=== PATIENT | female | born 1995 | race Caucasian/White ===

== ENCOUNTER 2018-01-25 15:19 | Emergency (ER) | payer BC, OTHER ==
[~2018-01-25] VITALS: Ht 162.6 cm; Wt 96.0 kg
[2018-01-25 15:24] VITALS: TEMP 36.9; Ht 162.6 cm; Wt 96.0 kg
[2018-01-25 16:14] LABS: BASO % 0.2 %; BASO ABS # 0.03 K/uL (0-0.2); EOS % 1.5 %; EOS ABS # 0.19 K/uL (0-0.5); HEMATOCRIT 41.8 % (37-47); HEMOGLOBIN 14.5 g/dL (12.0-16.0); IG# 0.04 K/uL (0.00-0.02); LYMPH % 21.1 %; LYMPH ABS # 2.63 K/uL (1.2-3.4); MEAN CELL VOLUME 84.1 fL (80-100); MEAN CORPUSCULAR HEMOGLOBIN 29.2 pg (25-34); MEAN CORPUSCULAR HGB CONC 34.7 g/dl (32-36); MONO % 5.5 %; MONO ABS # 0.69 K/uL (0.11-0.59); NEUT % 71.4 %; NEUT ABS # 8.91 K/uL (1.4-6.5); PLATELET COUNT 334 K/uL (130-400); RED CELL DISTRIBUTION WIDTH SD 39.3 fL (36.4-46.3); WHITE BLOOD COUNT 12.49 K/uL (4.8-10.8)
--- NOTE | 2018-01-25 16:20 | DIAGNOSTIC IMAGING REPORT ---
CT HEAD WITHOUT CONTRAST (CT) CLINICAL HISTORY: Left-sided numbness and blurry vision COMPARISON STUDY: No previous studies for comparison. TECHNIQUE: Axial CT of the brain is performed from the vertex to the skull base. IV contrast was not administered for this examination. A dose lowering technique was utilized adhering to the principles of ALARA. CT DOSE: 638.56 mGycm FINDINGS: No intra or extra-axial mass lesions are visualized. There is no CT evidence of acute cortical infarction. There is no evidence of midline shift. There is no acute hemorrhage. No calvarial fractures are visualized. There is no evidence of pathologic ventricular dilatation. There is no evidence of acute sinusitis IMPRESSION: Normal noncontrast head CT. Electronically signed by: Karl Marie M.D. 01/25/2018 4:19 PM Dictated Date/Time: 01/25/2018 4:18 PM
[2018-01-25] MEDS ORDERED: METOCLOPRAMIDE HCL INJ 5 MG/ML 2 ML VIAL IV. STA (16:28)
[2018-01-25] MEDS ORDERED: DiphenhydrAMINE HCL 50 MG/ML VIAL IV STA (16:28)
[2018-01-25] MEDS ORDERED: SODIUM CHLORIDE 0.9% 1000ML 1,000 ML IV ONE (16:30)
[2018-01-25 16:34] LABS: CALCIUM 9.2 mg/dl (8.5-10.1); CREATININE 0.97 mg/dl (0.60-1.20); POTASSIUM 3.7 mmol/L (3.5-5.1)
--- NOTE | 2018-01-25 16:38 | EMERGENCY ROOM VISIT NOTE ---
History First contact with patient: 15:40 Chief Complaint: NEURO SYMPTOMS Stated Complaint: LEFT SIDED NUMBNESS, BLURRED VISION Nursing Triage Summary: Patient to ED via triage with family referred by urgent care, reports headache since 1400 with bilateral blurry vision, tingling to left arm. hx of migraines History of Present Illness The patient is a 22 year old female who presents to the Emergency Room with complaints of neuro symptoms that started at approximately 1:30 this afternoon. The patient was driving when she noticed blurry vision in both of her eyes. She also noticed numbness on the left side of her face and body. The blurry vision has resolved. The numbness persists. She denies any weakness. No headache. She denies any similar symptoms in the past. The patient does have a history of confusion migraines. This is not similar to her previous migraines. She denies any fever or chills. No recent illnesses. She has not taken anything for symptoms. Review of Systems 10 system review performed and negative unless noted in HPI or below Past Medical/Surgical History History of disseminated Lyme disease History of confusion migraines Social History Smoking Status: Never Smoker Marital Status: single Occupation Status: employed Current/Historical Medications No Active Prescriptions or Reported Meds Physical Exam Vital Signs Date Time Temp Pulse Resp B/P (MAP) Pulse Ox O2 Delivery O2 Flow Rate FiO2 01/25/18 18:29 58 16 129/74 98 01/25/18 17:35 65 16 133/72 97 Room Air 01/25/18 16:55 68 16 152/76 99 Room Air 01/25/18 15:24 36.9 84 20 142/92 92 Room Air Physical Exam VITALS: Vitals are noted on the nurse's note and reviewed by myself. Vital signs stable. GENERAL: 22-year-old female, in no acute distress, nondiaphoretic, well- developed well-nourished. SKIN: The skin was without rashes, erythema, edema, or bruising. HEAD: Normocephalic atraumatic. EYES: Pupils equal round and reactive to light and accommodation. Conjunctivae without injection, sclerae without icterus. Extraocular movements intact. MOUTH: Mucous membranes slightly dry NECK: Supple without nuchal rigidity. No lymphadenopathy. Cervical spine is nontender. No JVD. HEART: Regular rate and rhythm without murmurs gallops or rubs. LUNGS: Clear to auscultation bilaterally without wheezes, rales or rhonchi. No accessory muscle use. MUSCULOSKELETAL: No muscle atrophy, erythema, or edema noted. Strength 5/5 throughout. NEURO: Patient was alert and oriented to person place and time. Subjective dullness to sensation over the left lower cheek, left arm and left leg. Cerebellar function intact. Negative pronator drift. Normal heel to toe walking. No focal neurological deficits. Medical Decision & Procedures ER Provider Diagnostic Interpretation: CT head without contrast IMPRESSION: Normal noncontrast head CT. Electronically signed by: Karl Marie M.D. 01/25/2018 4:19 PM Dictated Date/Time: 01/25/2018 4:18 PM The status of this report is Signed. Draft = Not yet reviewed or approved by Radiologist. Signed = Reviewed and approved by Radiologist. <AttendingPhy></AttendingPhy> <FamilyPhy>Román Damon PA-C</FamilyPhy> < PrimaryPhy>Román Damon PA-C</PrimaryPhy> <UnitNumber>[id number]</ UnitNumber> <VisitNumber>[id number]</VisitNumber> <PatientName>ROSANNE PATHAK</PatientName> <DateOfBirth>1995</DateOfBirth> <Location>[facility]</ Location> <ServiceDate>01/25/18</ServiceDate> <MNE>ESINDI</MNE> <OrderingPhy> Trang Tom PA-C</OrderingPhy> <OrderingPhyMNE>f rep ord dr bearden</ OrderingPhyMNE> <DictatingPhyMNE>f rep dict dr bearden</DictatingPhyMNE> <CCListMNE> f rep ct corbye</CCListMNE> <AdmittingPhyMNE>f pt admit dr bearden</AdmittingPhyMNE> < AttendingPhyMNE>f pt attend dr bearden</AttendingPhyMNE> Laboratory Results 01/25/18 16:00 Red Blood Count 4.97, Mean Corpuscular Volume 84.1, Mean Corpuscular Hemoglobin 29.2, Mean Corpuscular Hemoglobin Concent 34.7, Mean Platelet Volume 9.0, Neutrophils (%) (Auto) 71.4, Lymphocytes (%) (Auto) 21.1, Monocytes (%) (Auto) 5.5, Eosinophils (%) (Auto) 1.5, Basophils (%) (Auto) 0.2, Neutrophils # (Auto) 8.91, Lymphocytes # (Auto) 2.63, Monocytes # (Auto) 0.69, Eosinophils # (Auto) 0.19, Basophils # (Auto) 0.03 01/25/18 16:00 Test 01/25/18 16:00 White Blood Count 12.49 K/uL (4.8-10.8) Red Blood Count 4.97 M/uL (4.2-5.4) Hemoglobin 14.5 g/dL (12.0-16.0) Hematocrit 41.8 % (37-47) Mean Corpuscular Volume 84.1 fL (80-100) Mean Corpuscular Hemoglobin 29.2 pg (25-34) Mean Corpuscular Hemoglobin Concent 34.7 g/dl (32-36) Platelet Count 334 K/uL (130-400) Mean Platelet Volume 9.0 fL (7.4-10.4) Neutrophils (%) (Auto) 71.4 % Lymphocytes (%) (Auto) 21.1 % Monocytes (%) (Auto) 5.5 % Eosinophils (%) (Auto) 1.5 % Basophils (%) (Auto) 0.2 % Neutrophils # (Auto) 8.91 K/uL (1.4-6.5) Lymphocytes # (Auto) 2.63 K/uL (1.2-3.4) Monocytes # (Auto) 0.69 K/uL (0.11-0.59) Eosinophils # (Auto) 0.19 K/uL (0-0.5) Basophils # (Auto) 0.03 K/uL (0-0.2) RDW Standard Deviation 39.3 fL (36.4-46.3) RDW Coefficient of Variation 13.0 % (11.5-14.5) Immature Granulocyte % (Auto) 0.3 % Immature Granulocyte # (Auto) 0.04 K/uL (0.00-0.02) Urine Color YELLOW Urine Appearance CLEAR (CLEAR) Urine pH 5.5 (4.5-7.5) Urine Specific [place] 1.013 (1.000-1.030) Urine Protein NEG (NEG) Urine Glucose (UA) NEG (NEG) Urine Ketones NEG (NEG) Urine Occult Blood TRACE (NEG) Urine Nitrite NEG (NEG) Urine Bilirubin NEG (NEG) Urine Urobilinogen NEG (NEG) Urine Leukocyte Esterase NEG (NEG) Urine WBC (Auto) 1-5 /hpf (0-5) Urine RBC (Auto) 0-4 /hpf (0-4) Urine Hyaline Casts (Auto) 1-5 /lpf (0-5) Urine Epithelial Cells (Auto) 10-20 /lpf (0-5) Urine Bacteria (Auto) NEG (NEG) Urine Test NEG (NEG) Anion Gap 5.0 mmol/L (3-11) Est Creatinine Clear Calc Drug Dose 100.6 ml/min Estimated GFR () 94.7 Estimated GFR (Non- 81.7 BUN/Creatinine Ratio 9.6 (10-20) Calcium Level 9.2 mg/dl (8.5-10.1) Total Bilirubin 0.4 mg/dl (0.2-1) Aspartate Amino Transf (AST/SGOT) 15 U/L (15-37) Alanine Aminotransferase (ALT/SGPT) 27 U/L (12-78) Alkaline Phosphatase 72 U/L (45-117) Total Protein 7.9 gm/dl (6.4-8.2) Albumin 4.0 gm/dl (3.4-5.0) Globulin 3.9 gm/dl (2.5-4.0) Albumin/Globulin Ratio 1.0 (0.9-2) Thyroid Stimulating Hormone (TSH) 0.718 uIu/ml (0.300-4.500) Lyme Disease IgG Antibody NEG (NEG) Medications Administered Medications (Trade) Dose Ordered Sig/Suze Route Start Time Stop Time Status Last Admin Dose Admin Metoclopramide HCl (Reglan Inj) 10 mg NOW STAT IV. 01/25/18 16:28 01/25/18 16:29 DC 01/25/18 16:51 10 MG Diphenhydramine HCl (Benadryl Inj) 25 mg NOW STAT IV 01/25/18 16:28 01/25/18 16:29 DC 01/25/18 16:51 25 MG Sodium Chloride 1,000 ml @ 999 mls/hr Q1H1M ONCE IV 01/25/18 16:30 01/25/18 17:30 DC 01/25/18 16:30 999 MLS/HR ED Course Patient was seen and examined Vital signs including blood pressure were reviewed medications list was verified with patient Labs were obtained, and a saline lock was established CT the head was performed and reviewed The patient was medicated with Benadryl and Reglan. She was hydrated with 1 L of normal saline. Upon reevaluation, the patient was resting comfortably in bed. She reports that her symptoms were improved. We thoroughly reviewed her workup. She and her parents voiced understanding. They were comfortable being discharged home. I reviewed discharge instructions the patient. They voiced understanding and had no further questions. Medical Decision Differential diagnosis: Atypical migraine, multiple sclerosis, CVA, anxiety, disseminated Lyme disease This patient is a 22-year-old female that presents the emergency department complaining of neurologic symptoms such as numbness on the left side of her body and blurry vision that started at 1:30 PM this afternoon. On exam, she had subjective dullness to sensation over her left cheek, arm and leg. Otherwise, she was neurologically intact. The patient's workup reveals mild leukocytosis. Her Lyme IgM is also equivocal. The patient has a history of Lyme disease. She was treated in the emergency department with fluids, Benadryl and Reglan with excellent symptomatic relief. This leads me to believe that this is possibly due to an atypical migraine. CT of the head was performed and no abnormalities were noted I believe she is stable to be discharged home. We will hold off on antibiotics until the Western blot malign comes back. The patient and the patient's parents are comfortable with this plan. They'll follow up with the primary care physician as soon as possible for a recheck, and agreed to return to the emergency department with any new or concerning symptoms. This chart was completed in part utilizing [employer] Speech Voice Recognition software. Attempts were made to minimize the grammatical errors, random word insertions, pronoun errors and incomplete sentences. Any formal questions or concerns about the content, text or information contained within the body of this dictation should be directly addressed to the provider for clarification. Medication Reconcilliation Current Medication List: was personally reviewed by me Blood Pressure Screening Patient's blood pressure: Elevated blood pressure Blood pressure disposition: Elevated BP felt to be situational Impression Primary Impression: Paresthesias Departure Information Dispostion Home / Self-Care Condition GOOD Prescriptions No Active Prescriptions or Reported Meds Referrals Román Damon PA-C (PCP) Patient Instructions My [facility] Additional Instructions You were evaluated in the emergency department for numbness, tingling and blurry vision. It is possible that this is due to an unusual migraine. Your blood work will be sent for further evaluation for Lyme disease. You will be notified by phone if this is abnormal. Please get plenty of rest. Stay well hydrated. Please follow-up with your primary care physician as soon as possible for a recheck Please do not hesitate to return to the emergency department with any new, worsening or concerning symptoms; especially, fever, sudden, severe headache, neck pain or persistent vomiting Work Instructions Return To Work: 1 day School Instructions Return To School: 1 day
[2018-01-25 16:45] LABS: TOTAL PROTEIN 7.9 gm/dl (6.4-8.2)
[2018-01-25 18:29] VITALS: BP 129/74; PULSE 58; O2SAT 98
== END 2018-01-25 18:34 | disposition home or self-care (01) ==
LOC: C.EDB 15:20 → C.EDD 18:34
DX: R20.2 Paresthesia of skin (principal); H53.8 Other visual disturbances; R51 Headache; Z86.19 Personal history of other infectious and parasitic diseases